=== PATIENT | male | born 1975 | race Caucasian/White ===

== ENCOUNTER 2025-05-12 14:02 | Emergency (ER) | payer BC, SELFPAY ==
--- NOTE | 2025-05-12 14:09 | ED_ITS ---
HPI - General Adult General Chief complaint: Neck Pain/Injury Stated complaint: Neck / LT Arm Pain Time Seen by Provider: 05/12/25 14:09 Source: patient Mode of arrival: ambulatory Limitations: no limitations History of Present Illness HPI narrative: 49-year-old male presented for complaint of neck pain radiating into the left arm. Onset in March after heavy lifting. Endorses a 'knot' to the left upper back/neck area. Says the pain is slowly improving, he has been following with a chiropractor in taking NSAIDs. He denies decreased ROM to neck or arm, numbness, tingling, weakness of the extremity, chest pain, palpitations, nausea. Related Data Allergies Allergy/AdvReac Type Severity Reaction Status Date / Time Penicillins Allergy Intermediate Rash Verified 05/12/25 14:17 Review of Systems Review of Systems: CONSTITUTIONAL: Denies body aches, fever, chills, or sweats. EYES: Denies visual changes, redness, or discharge. CARDIOVASCULAR: Denies chest pain, palpitations, or edema. RESPIRATORY: Denies cough or dyspnea. GASTROINTESTINAL: Denies abdominal pain, nausea, vomiting, or diarrhea. SKIN: Denies rash MUSCULOSKELETAL: Denies back pain, joint pain, or myalgia. NEUROLOGIC: Denies headache, numbness, tingling, or weakness. All systems reviewed & are unremarkable except as noted in HPI and below PMFSH Comments At time of signature, I have reviewed and agree with nursing past medical, surgical, social and family history unless otherwise noted. Please see nursing chart for further information. There is no relevant family history pertinent to the presenting complaint Exam Narrative: GENERAL: Well-appearing, and in no acute distress. HEAD: Normocephalic, atraumatic. EYES: EOMI. No redness or drainage. Conjunctivae normal. ENT: Mucous membranes pink and moist. NECK: Normal AROM. No vpt. Tender to paraspinal C-7 area Supple. No lymphadenopathy. CHEST: No respiratory distress. Clear to auscultation. HEART: Regular rate and rhythm. No murmur appreciated. Normal peripheral pulses. MUSCULOSKELETAL: No bony tenderness. EXTREMITIES: Normal range of motion. SKIN: Warm, dry, no rash. Capillary refill normal. Normal skin turgor. NEURO: No focal deficits. Alert and oriented x3. Gait steady. PSYCH: Normal affect. Course Course Emergency Course: Patient is aware of diagnosis, understands and agrees to treatment plan. Anticipatory guidance given. Patient agrees to follow-up as directed and is aware of reasons to seek care at the emergency department. Portions of this record may have been created with voice recognition software Level of Care: Express Care Visit Medical Decision Making MDM Narrative Medical decision making narrative: Discussed physical exam findings c/w cervical radiculopathy. Shared decision making pt will start steroid and muscle relaxer and will continue with chiropractor. If no improvement he will obtain imaging. Advised supportive measures and signs/symptoms to go to the ER. Pt is appropriate for outpt treatment and f/u. Differential Diagnosis Differential Diagnosis: MVC, cervical strain, cervical radiculopathy, cervical spine fracture/dislocation/herniation Musculoskeletal injury, torticollis, cervical spondylosis, cervical stenosis, epidural abscess, osteomyelitis, disc herniation Vital Signs Vital Signs: reviewed Discharge Plan Discharge Clinical Impression: Cervical radiculopathy Patient Disposition: Home Condition: Stable Instructions: Cervical Radiculopathy (ED) Additional Instructions: Rest. Avoid pushing, pulling, lifting or anything that worsens the symptoms Tylenol 1000mg every 8 hours as needed Take the steroid as directed Cyclobenzaprine (Flexeril) is a muscle relaxer. Take it as directed. It can cause drowsiness so do not drive or operate machinery until you know how it makes you feel. Alternate ice/heat to the site. Lidocaine or salon pas pain patch or use pain cream like icy/hot or biofreeze. Follow up with your primary care provider as needed in 1 week Go to the ER for worsening symptoms or concerns Patient Language: [place]ine[place] Prescriptions: New cyclobenzaprine 10 mg tablet 10 mg PO TID PRN (Reason: muscle spasm) Qty: 12 0RF prednisone 20 mg tablet 20 mg PO DAILY Qty: 12 0RF Rx Instructions: take 3 tablets daily for 2 days, then 2 tablets daily for 2 days then 1 tablet daily for 2 days Follow-up/Referrals: PHYSICIAN,WAREHOUSE ORDER SELECTOR [Primary Care Provider] - Time of Disposition: 14:24
[2025-05-12 14:12] VITALS: BP 155/100; PULSE 97; RESP 18; TEMP 36.3; O2SAT 99
--- OUTSIDE RECORDS SUMMARY | 2025-05-12 14:22 | XMS_ITS | Clinical Summary ---
Author Organization [facility] Address [address] [place] [id number] Care Team Providers Care Locket Maker Name Role Phone Unavailable Primary Care Provider Unavailabl e Social History Tobacco Use Types Packs/Day Years Used Date Smoking Tobacco: Never Assessed Sex and Gender Information Value Date Recorded Sex Assigned at Not on file Legal Sex Male 8:40 PM CDT Gender Identity Not on file Sexual Orientation Not on file Plan of Treatment Health Maintenance Due Date Last Done Comments Colorectal Cancer Screening Colonoscopy (10 Years) 1975 Annual Physical 1978 Hepatitis C 1993 DTaP, Tdap and Td Vaccines ( 1 - Tdap) 1994 Hepatitis B Vaccines (1 of 3 - 19+ 3-dose series) 1994 COVID-19 Vaccine (2023-2 5 season) 2024 Meningococcal B Vaccine Aged Out No l onger eligible based on patient's age to complete this topic Meningococcal Vaccine Aged Out No marlo carlo eligible based on patient's age to complete this topic Pneumococcal Vaccine: Pediat rics (0 to 5 Years) and At-Risk Patients (6 to 49 Years) Aged Out No longer eligible b ased on patient's age to complete this topic RSV Immunizations Under 20 Months Aged Out No longer eligible based on patient's age to complete this topic
== END 2025-05-12 14:36 | disposition home or self-care (01) ==
PROVIDERS: Emergency Provider Nurse Practitioner Family
DX: M54.12 Radiculopathy, cervical region (principal)
CPT/HCPCS: 99203; G0463